=== PATIENT | female | born 1950 | race Caucasian/White ===

== ENCOUNTER → 2023-07-16 08:56 | Outpatient (REF) | payer MEDICARE, OTHER, SELFPAY ==
[2023-07-16 10:36] LABS: ALT (SGPT) 17 U/L (0-35); AST (SGOT) 21 U/L (14-36); Albumin 4.1 g/dl (3.5-5.0); Alkaline Phosphatase 64 U/L (38-126); Blood Urea Nitrogen 14 mg/dl (7-17); Calcium 9.2 mg/dl (8.4-10.2); Carbon Dioxide 26 mmol/L (22-30); Chloride 106 mmol/L (98-107); Glucose 103 mg/dl (70-99); HDL Cholesterol 64 mg/dl; LDL Cholesterol, Calculated 110 mg/dl; Potassium 4.3 mmol/L (3.5-5.1); Sodium 137 mmol/L (135-145); Total Bilirubin 0.5 mg/dl (0.2-1.3); Total Cholesterol 191 mg/dl (50-199); Total Protein 6.8 g/dl (6.3-8.2); Triglyceride 86 mg/dl (10-149); Very Low Density Lipoprotein 17 mg/dl (0-30); eGFR > 60.00
[2023-07-16 11:39] LABS: Glycohemoglobin (HgbA1c) 5.3 % (4.0-5.6)
== END ==
LOC: REG 08:56
PROVIDERS: ATTENDING PHYSICIAN Nurse Practitioner Family
DX: E55.9 Vitamin D deficiency, unspecified (principal); Z13.29 Encounter for screening for other suspected endocrine disorder; E78.2 Mixed hyperlipidemia; R73.01 Impaired fasting glucose
CPT/HCPCS: 36415; 80053; 80061; 82306; 83036; 84443

== ENCOUNTER → 2023-08-10 11:05 | Outpatient (REF) | payer MEDICARE, OTHER, SELFPAY | LOC: HWRCS 11:05 | PROVIDERS: ATTENDING PHYSICIAN Internal Medicine Cardiovascular Disease; FAMILY PHYSICIAN Nurse Practitioner Family | DX: R06.09 Other forms of dyspnea (principal) | CPT/HCPCS: 93306 ==

== ENCOUNTER → 2023-08-27 12:52 | Outpatient (REF) | payer MEDICARE, OTHER, SELFPAY | LOC: RCS 12:52 | PROVIDERS: ATTENDING PHYSICIAN Internal Medicine Cardiovascular Disease; FAMILY PHYSICIAN Nurse Practitioner Family | DX: R06.09 Other forms of dyspnea (principal); R07.89 Other chest pain | CPT/HCPCS: 93017; 93350 ==

== ENCOUNTER → 2023-09-30 09:00 | Outpatient (REF) | payer MEDICARE, OTHER, SELFPAY | LOC: DHSLP 09:00 | PROVIDERS: ATTENDING PHYSICIAN Internal Medicine; FAMILY PHYSICIAN Nurse Practitioner Family | DX: G47.33 Obstructive sleep apnea (adult) (pediatric) (principal) | CPT/HCPCS: 95800 ==